=== PATIENT | female | born 1975 | race African-American/Black ===

== ENCOUNTER 2019-11-03 05:26 | Inpatient (IN) | payer MEDICAID ==
[2019-11-03] VITALS (7 sets, daily range): BP systolic 108–168; BP diastolic 56–98
[~2019-11-03] VITALS: Ht 170.2 cm; Wt 82.6 kg
[2019-11-03] MEDS ORDERED: HYDROmorphone 1mg/ml Carpuject IVP ONE (05:45)
[2019-11-03 05:55] LABS: APPEARANCE,URINE SLIGHTLY CLOUDY; BILIRUBIN, URINE NEGATIVE (NEGATIVE); COLOR,URINE PALE YELLOW; GLUCOSE, URINE (UA) NEGATIVE (NEGATIVE); KETONES,URINE NEGATIVE (NEGATIVE); LEUKOCYTE ESTERASE ,URINE 1+ (NEGATIVE); NITRITE,URINE NEGATIVE (NEGATIVE); PH,URINE 5 (4.5-8.0); PROTEIN,URINE 2+ (NEGATIVE); UROBILINOGEN,URINE NORMAL MG/DL (0.0-1.0)
--- NOTE | 2019-11-03 06:03 | Emergency Room Report ---
History of Present Illness General Chief Complaint: Vomiting Source: Patient (Basil Rojas MD) Present Illness HPI This a 44-year-old female with history of recurrent gastroenteritis. She says she gets this every few months if she eats certain food. Patient presents with 2 complaint abdominal pain with nausea and vomiting. Onset for last couple hours. Pain is severe. 10 out of 10. Pain is diffuse. No radiation. Nothing made it better. Nothing made it worse. Similar symptom in the past. Denies any fever chills but denies any diarrhea. He denies any urinary complaint. 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: No (Basil Rojas MD) Patient History Past Medical History: see triage record, old chart reviewed Past Surgical History: other Pertinent Family History: none Social History: Denies: smoking, alcohol use, drug use Last Menstrual Period: n/a Now: No Immunizations: other Reviewed Nursing Documentation: PMH: Agreed; PSxH: Agreed (Basil Rojas MD) Nursing Documentation-PMH Past Medical History: No History, Except For Hx Gastrointestinal Problems: Yes - gastritis (Basil Rojas MD) Review of Systems Eye: Denies: eye pain, blurred vision ENT: Denies: ear pain, nose congestion, throat swelling Respiratory: Denies: cough, shortness of breath Cardiovascular: Denies: chest pain, palpitations Gastrointestinal: Reports: abdominal pain, nausea, vomiting; Denies: diarrhea Musculoskeletal: Denies: back pain, joint pain Skin: Denies: rash Neurological: Denies: headache, numbness Endocrine: Denies: increased thirst, increased urine Hematologic/Lymphatic: Denies: easy bruising All Other Systems: negative except mentioned in HPI (Basil Rojas MD) Physical Exam Vital Signs Date Time Temp Pulse Resp B/P (MAP) Pulse Ox O2 Delivery O2 Flow Rate FiO2 11/03/19 05:34 97.0 64 18 144/98 (113) 98 Room Air Vitals with high blood pressure Sp02 EP Interpretation: reviewed, normal General Appearance: well appearing, no apparent distress, alert Head: normocephalic, atraumatic Eyes: bilateral eye PERRL, bilateral eye EOMI ENT: hearing grossly normal, normal pharynx Neck: full range of motion, supple, no meningismus Respiratory: chest non-tender, lungs clear, normal breath sounds Cardiovascular #1: regular rate, rhythm, no murmur Gastrointestinal: no mass, no organomegaly, no bruit, non-distended, tenderness - Diffuse, decreased bowel sounds Musculoskeletal: back normal, normal range of motion, gait/station normal Neurologic: alert, oriented x3 Psychiatric: mood/affect normal Skin: diaphoresis (Basil Rojas MD) Medical Decision Making Diagnostic Impression: Primary Impression: Abdominal pain Qualified Codes: R10.84 - Generalized abdominal pain Additional Impression: Cyclic vomiting syndrome ER Course Patient presents with symptom consistent with cyclic vomiting syndrome. Labs IV fluids and pain medication ordered. Will reassess. I will sign this patient out to Dr. Figueroa for final disposition. If patient felt better and tolerating p.o., can be discharged home. (Basil Rojas MD) ER Course Patient was endorsed to me by . See Dr. Rojas's note for full HPI. patient had reported longstanding history of cyclic vomiting and abdominal pain. She denies marijuana smoking. She states she did smoke marijuana on Sunday. Continued nausea and abdominal pain after receiving Dilaudid and Zofran in the emergency department. She started on dextrose containing fluids.Patient reports having multiple imaging studies in the past as well as previous colonoscopies and EGDs without any findings. She also reports having a prior history of fibroids which are reportedly the size of a golf ball. She does states she had some anemia in the past.Patient's laboratory testing is essentially unremarkable and there is no evidence of pancreatitis. White blood count is normal as is hemoglobin.EKG interpreted by me showed sinus bradycardia with a rate of [address] or T wave changes.Patient continues to have abdominal pain and nausea despite medications will likely require hospitalization for inpatient rehydration and management.Patient was also given Reglan as well as morphine.Patient was discussed with Dr. Gregory who agreed with admission Labs Test 11/03/19 05:55 White Blood Count 10.8 K/UL (4.8-10.8) Red Blood Count 4.36 M/UL (4.20-5.40) Hemoglobin 14.5 G/DL (12.0-16.0) Hematocrit 46.1 % (37.0-47.0) Mean Corpuscular Volume 106 FL (80-99) Mean Corpuscular Hemoglobin 33.1 PG (27.0-31.0) Mean Corpuscular Hemoglobin Concent 31.4 G/DL (32.0-36.0) Red Cell Distribution Width 11.9 % (11.6-14.8) Platelet Count 302 K/UL (150-450) Mean Platelet Volume 6.2 FL (6.5-10.1) Neutrophils (%) (Auto) 81.5 % (45.0-75.0) Lymphocytes (%) (Auto) 14.0 % (20.0-45.0) Monocytes (%) (Auto) 3.0 % (1.0-10.0) Eosinophils (%) (Auto) 0.8 % (0.0-3.0) Basophils (%) (Auto) 0.8 % (0.0-2.0) Urine Color Pale yellow Urine Appearance Slightly cloudy Urine pH 5 (4.5-8.0) Urine Specific [place] 1.025 (1.005-1.035) Urine Protein 2+ (NEGATIVE) Urine Glucose (UA) Negative (NEGATIVE) Urine Ketones Negative (NEGATIVE) Urine Blood 2+ (NEGATIVE) Urine Nitrite Negative (NEGATIVE) Urine Bilirubin Negative (NEGATIVE) Urine Urobilinogen Normal MG/DL (0.0-1.0) Urine Leukocyte Esterase 1+ (NEGATIVE) Urine RBC 2-4 /HPF (0 - 2) Urine WBC 2-4 /HPF (0 - 2) Urine Squamous Epithelial Cells Many /LPF (NONE/OCC) Urine Bacteria Few /HPF (NONE) Urine Mucus Moderate /LPF (NONE/OCC) Urine HCG, Qualitative Negative (NEGATIVE) Sodium Level 142 MMOL/L (136-145) Potassium Level 3.7 MMOL/L (3.5-5.1) Chloride Level 107 MMOL/L (98-107) Carbon Dioxide Level 22 MMOL/L (21-32) Anion Gap 13 mmol/L (5-15) Blood Urea Nitrogen 12 mg/dL (7-18) Creatinine 1.1 MG/DL (0.55-1.30) Estimat Glomerular Filtration Rate > 60 mL/min (>60) Glucose Level 163 MG/DL (74-106) Calcium Level 8.5 MG/DL (8.5-10.1) Total Bilirubin 0.2 MG/DL (0.2-1.0) Aspartate Amino Transf (AST/SGOT) 28 U/L (15-37) Alanine Aminotransferase (ALT/SGPT) 28 U/L (12-78) Alkaline Phosphatase 69 U/L (46-116) Total Protein 8.0 G/DL (6.4-8.2) Albumin 4.2 G/DL (3.4-5.0) Globulin 3.8 g/dL Albumin/Globulin Ratio 1.1 (1.0-2.7) Lipase 69 U/L (73-393) (Laureano Figueroa MD) Last Vital Signs Date Time Temp Pulse Resp B/P (MAP) Pulse Ox O2 Delivery O2 Flow Rate FiO2 11/03/19 05:35 64 18 Room Air 11/03/19 05:35 97.0 144/98 98 Status: improved (Basil Rojas MD) Status: unchanged (Laureano Figueroa MD) Disposition: ADMITTED INPATIENT Condition: Stable Referrals: KIZZY STERLING,REFERRING (PCP) Basil Rojas MD Nov 03, 2019 06:03 Laureano Figueroa MD Nov 03, 2019 07:17
[2019-11-03 06:06] LABS: BASOPHILS % (AUTO) 0.8 % (0.0-2.0); EOSINOPHILS % (AUTO) 0.8 % (0.0-3.0); HEMATOCRIT 46.1 % (37.0-47.0); HEMOGLOBIN 14.5 G/DL (12.0-16.0); MEAN CORPUSCULAR VOLUME 106 FL (80-99); NEUTROPHILS % (AUTO) 81.5 % (45.0-75.0); PLATELET COUNT 302 K/UL (150-450); RED BLOOD COUNT 4.36 M/UL (4.20-5.40); RED CELL DISTRIBUTION WIDTH 11.9 % (11.6-14.8); WHITE BLOOD COUNT 10.8 K/UL (4.8-10.8)
[2019-11-03 06:08] LABS: ANION GAP 13 mmol/L (5-15); BLOOD UREA NITROGEN 12 mg/dL (7-18); CALCIUM 8.5 MG/DL (8.5-10.1); CARBON DIOXIDE 22 MMOL/L (21-32); CHLORIDE 107 MMOL/L (98-107); CREATININE 1.1 MG/DL (0.55-1.30); POTASSIUM 3.7 MMOL/L (3.5-5.1); SODIUM 142 MMOL/L (136-145)
[2019-11-03 06:13] LABS: ALANINE AMINOTRANSFERASE 28 U/L (12-78); ALBUMIN 4.2 G/DL (3.4-5.0); ALBUMIN/GLOBULIN RATIO 1.1 (1.0-2.7); ALKALINE PHOSPHATASE 69 U/L (46-116); ASPARTATE AMINO TRANSFERASE 28 U/L (15-37); BILIRUBIN,TOTAL 0.2 MG/DL (0.2-1.0)
[2019-11-03] MEDS ORDERED: cefTRIAXone 1 GM in NS 55 ML IVPB ONE (07:00)
[2019-11-03] MEDS ORDERED: D5 1/2NS w/KCl 20mEq 1,000 ML IV SCH (07:15)
[2019-11-03] MEDS ORDERED: DiphenhydrAMINE 50mg/ml Inj IVP ONE (07:30)
[2019-11-03] MEDS ORDERED: Metoclopramide 10mg/2ml Inj IVP ONE (09:30)
[2019-11-03] MEDS ORDERED: Morphine Sulfate 4mg/ml Inj (IV USE ONLY) IVP ONE (09:30)
[2019-11-03] MEDS: Morphine Sulfate 2mg/ml Inj(IV/IM USE ONLY) IVP PRN ×3 (12:19→20:41)
[2019-11-03] MEDS ORDERED: NORETHINDRONE AC5 MG PO (13:36)
--- NOTE | 2019-11-03 13:47 | General Progress Note ---
Assessment/Plan Problem List: (1) Cyclic vomiting syndrome ICD Codes: R11.15 - Cyclical vomiting syndrome unrelated to migraine SNOMED: 60056775 (2) Abdominal pain ICD Codes: R10.9 - Unspecified abdominal pain SNOMED: 86042714 Qualifiers: Qualified Codes: R10.84 - Generalized abdominal pain Assessment/Plan: drug acreen abd us repeat labs clears and advance as tolerated Subjective ROS Limited/Unobtainable: Yes Allergies: Coded Allergies: No Known Allergies (Unverified , 11/03/19) Objective Last 24 Hour Vital Signs Date Time Temp Pulse Resp B/P (MAP) Pulse Ox O2 Delivery O2 Flow Rate FiO2 11/03/19 12:49 97.0 11/03/19 12:00 98.7 64 18 168/85 (112) 99 64 11/03/19 10:58 Room Air 11/03/19 10:56 Room Air 11/03/19 10:25 97.0 66 16 139/87 99 Room Air 80 11/03/19 10:15 97.0 80 16 139/87 99 Room Air 11/03/19 10:10 97.0 11/03/19 09:28 97.0 66 26 158/97 100 Room Air 11/03/19 07:48 97.0 65 33 146/71 99 Room Air 11/03/19 06:18 97.0 11/03/19 05:35 64 18 Room Air 11/03/19 05:35 97.0 63 18 144/98 98 Room Air 11/03/19 05:34 97.0 64 18 144/98 (113) 98 Room Air Intake and Output 11/02/19 11/03/19 19:00 07:00 Intake Total 1000 ml Balance 1000 ml Intake Oral 0 ml IV Total 1000 ml # Voids 1 Laboratory Tests 11/03/19 05:55: White Blood Count 10.8, Red Blood Count 4.36, Hemoglobin 14.5, Hematocrit 46.1, Mean Corpuscular Volume 106H, Mean Corpuscular Hemoglobin 33.1H, Mean Corpuscular Hemoglobin Concent 31.4L, Red Cell Distribution Width 11.9, Platelet Count 302, Mean Platelet Volume 6.2L, Neutrophils (%) (Auto) 81.5H, Lymphocytes (%) (Auto) 14.0L, Monocytes (%) (Auto) 3.0, Eosinophils (%) (Auto) 0.8, Basophils (%) (Auto) 0.8, Urine Color Pale yellow, Urine Appearance Slightly cloudy, Urine pH 5, Urine Specific [place] 1.025, Urine Protein 2+H, Urine Glucose (UA) Negative, Urine Ketones Negative, Urine Blood 2+H, Urine Nitrite Negative, Urine Bilirubin Negative, Urine Urobilinogen Normal, Urine Leukocyte Esterase 1+H, Urine RBC 2-4H, Urine WBC 2-4, Urine Squamous Epithelial Cells ManyH, Urine Bacteria Few, Urine Mucus ModerateH, Urine HCG, Qualitative Negative, Sodium Level 142, Potassium Level 3.7, Chloride Level 107 , Carbon Dioxide Level 22, Anion Gap 13, Blood Urea Nitrogen 12, Creatinine 1.1 , Estimat Glomerular Filtration Rate > 60, Glucose Level 163H, Calcium Level 8.5 , Total Bilirubin 0.2, Aspartate Amino Transf (AST/SGOT) 28, Alanine Aminotransferase (ALT/SGPT) 28, Alkaline Phosphatase 69, Total Protein 8.0, Albumin 4.2, Globulin 3.8, Albumin/Globulin Ratio 1.1, Lipase 69L Height (Feet): 5 Height (Inches): 7.00 Weight (Pounds): 182 General Appearance: alert EENT: normal ENT inspection Respiratory/Chest: lungs clear Abdomen: hypoactive bowel sounds, tender Extremities: non-tender Satnam Anderson MD Nov 03, 2019 13:47
[2019-11-03] MEDS: HYDROcodone/Acetamin 5/325 tab ORAL PRN (17:21)
[2019-11-03] MEDS: D5 1/2NS w/KCl 20mEq 1,000 ML IV SCH (18:00)
--- NOTE | 2019-11-03 18:15 | Diagnostic Imaging Report ---
Indication: Abdominal pain, nausea, vomiting Technique: Purdy-scale and duplex images of the upper abdomen were obtained Comparison: none Findings: Gallbladder is unremarkable, without stones, wall thickening, nor pericholecystic fluid. Sonographic Penaloza's sign is negative. Common bile duct measures 3 mm in diameter. No intrahepatic biliary ductal dilatation. Liver demonstrates normal echogenicity, no focal abnormality. Portal vein and hepatic veins are patent. Pancreas is unremarkable. Spleen is unremarkable. Left kidney measures 10.7 cm in length. Right kidney measures 10.5 cm length. Both kidneys demonstrate normal echogenicity. There is no hydronephrosis. Somewhat unusual thick walled left renal parapelvic cyst is noted . Non-aneurysmal abdominal aorta . Impression: Essentially unremarkable exam Somewhat unusual thick walled left renal parapelvic cyst incidentally noted
[2019-11-03] MEDS: Pantoprazole Inj IVP SCH (20:41)
--- NOTE | 2019-11-03 22:35 | History & Physical ---
Levy Villalpando MD Nov 03, 2019 22:35
[2019-11-04] VITALS: BP 130/65
[2019-11-04] MEDS: D5 1/2NS w/KCl 20mEq 1,000 ML IV SCH ×2 (01:04→08:52)
[2019-11-04] MEDS: HYDROcodone/Acetamin 5/325 tab ORAL PRN ×2 (01:04→10:33)
[2019-11-04 04:00] VITALS: BP 104/69
[2019-11-04] MEDS: Morphine Sulfate 2mg/ml Inj(IV/IM USE ONLY) IVP PRN (05:22)
[2019-11-04 06:11] LABS: ALANINE AMINOTRANSFERASE 33 U/L (12-78); ALBUMIN 3.6 G/DL (3.4-5.0); ALBUMIN/GLOBULIN RATIO 1.1 (1.0-2.7); ALKALINE PHOSPHATASE 55 U/L (46-116); ANION GAP 11 mmol/L (5-15); ASPARTATE AMINO TRANSFERASE 28 U/L (15-37); BILIRUBIN,TOTAL 0.3 MG/DL (0.2-1.0); BLOOD UREA NITROGEN 5 mg/dL (7-18); CALCIUM 8.2 MG/DL (8.5-10.1); CARBON DIOXIDE 24 MMOL/L (21-32); CHLORIDE 104 MMOL/L (98-107); CREATININE 1.1 MG/DL (0.55-1.30); PHOSPHORUS 2.1 MG/DL (2.5-4.9); SODIUM 139 MMOL/L (136-145)
[2019-11-04 06:13] LABS: BASOPHILS % (AUTO) 0.9 % (0.0-2.0); EOSINOPHILS % (AUTO) 1.2 % (0.0-3.0); HEMATOCRIT 41.6 % (37.0-47.0); HEMOGLOBIN 13.3 G/DL (12.0-16.0); LYMPHOCYTES % (AUTO) 28.4 % (20.0-45.0); MEAN CORPUSCULAR VOLUME 103 FL (80-99); MONOCYTES % (AUTO) 6.9 % (1.0-10.0); NEUTROPHILS % (AUTO) 62.6 % (45.0-75.0); PLATELET COUNT 273 K/UL (150-450); RED BLOOD COUNT 4.03 M/UL (4.20-5.40); WHITE BLOOD COUNT 11.4 K/UL (4.8-10.8)
[2019-11-04 08:00] VITALS: BP 125/67
--- NOTE | 2019-11-04 08:15 | Consultation ---
History of Present Illness General Chief Complaint: Vomiting Present Illness HPI This a 44-year-old female with history of recurrent gastroenteritis. She says she gets this every few months if she eats certain food. Patient presents with 2 complaint abdominal pain with nausea and vomiting. Onset for last couple hours. Pain is severe. 10 out of 10. Pain is diffuse. No radiation. Nothing made it better. Nothing made it worse. Similar symptom in the past. Denies any fever chills but denies any diarrhea. He denies any urinary complaint. Allergies: Coded Allergies: No Known Allergies (Unverified , 11/03/19) Medication History Scheduled Norethindrone Acetate (Norethindrone Acetate), 10 MG PO DAILY, (Reported) Patient History Healthcare decision maker Resuscitation status Advanced Directive on File Physical Exam Last 24 Hour Vital Signs Date Time Temp Pulse Resp B/P (MAP) Pulse Ox O2 Delivery O2 Flow Rate FiO2 11/04/19 04:00 98.9 71 18 104/69 (81) 98 75 11/04/19 00:00 98.7 75 18 130/65 (86) 99 75 11/03/19 21:00 Room Air 11/03/19 20:00 99.2 71 18 108/56 (73) 98 71 11/03/19 17:51 97.0 11/03/19 16:28 97.0 11/03/19 16:00 98.7 71 18 156/91 (112) 100 71 11/03/19 12:00 98.7 64 18 168/85 (112) 99 64 11/03/19 10:58 Room Air 11/03/19 10:56 Room Air 11/03/19 10:25 97.0 66 16 139/87 99 Room Air 80 11/03/19 10:15 97.0 80 16 139/87 99 Room Air 11/03/19 10:10 97.0 11/03/19 09:28 97.0 66 26 158/97 100 Room Air Intake and Output 11/03/19 11/04/19 19:00 07:00 Intake Total 425 ml 2128 ml Balance 425 ml 2128 ml Intake Oral 300 ml 628 ml IV Total 125 ml 1500 ml # Voids 5 # Bowel Movements 2 Laboratory Tests Test 11/03/19 16:30 11/04/19 04:55 Urine Opiates Screen Negative (NEGATIVE) Urine Barbiturates Screen Negative (NEGATIVE) Phencyclidine (PCP) Screen Negative (NEGATIVE) Urine Amphetamines Screen Negative (NEGATIVE) Urine Benzodiazepines Screen Negative (NEGATIVE) Urine Cocaine Screen Negative (NEGATIVE) Urine Marijuana (THC) Screen Positive (NEGATIVE) H White Blood Count 11.4 K/UL (4.8-10.8) H Red Blood Count 4.03 M/UL (4.20-5.40) L Hemoglobin 13.3 G/DL (12.0-16.0) Hematocrit 41.6 % (37.0-47.0) Mean Corpuscular Volume 103 FL (80-99) H Mean Corpuscular Hemoglobin 33.0 PG (27.0-31.0) H Mean Corpuscular Hemoglobin Concent 31.9 G/DL (32.0-36.0) L Red Cell Distribution Width 12.0 % (11.6-14.8) Platelet Count 273 K/UL (150-450) Mean Platelet Volume 6.8 FL (6.5-10.1) Neutrophils (%) (Auto) 62.6 % (45.0-75.0) Lymphocytes (%) (Auto) 28.4 % (20.0-45.0) Monocytes (%) (Auto) 6.9 % (1.0-10.0) Eosinophils (%) (Auto) 1.2 % (0.0-3.0) Basophils (%) (Auto) 0.9 % (0.0-2.0) Sodium Level 139 MMOL/L (136-145) Potassium Level 4.0 MMOL/L (3.5-5.1) Chloride Level 104 MMOL/L (98-107) Carbon Dioxide Level 24 MMOL/L (21-32) Anion Gap 11 mmol/L (5-15) Blood Urea Nitrogen 5 mg/dL (7-18) L Creatinine 1.1 MG/DL (0.55-1.30) Estimat Glomerular Filtration Rate > 60 mL/min (>60) Glucose Level 104 MG/DL (74-106) Hemoglobin A1c 6.2 % (4.3-6.0) H Calcium Level 8.2 MG/DL (8.5-10.1) L Phosphorus Level 2.1 MG/DL (2.5-4.9) L Total Bilirubin 0.3 MG/DL (0.2-1.0) Aspartate Amino Transf (AST/SGOT) 28 U/L (15-37) Alanine Aminotransferase (ALT/SGPT) 33 U/L (12-78) Alkaline Phosphatase 55 U/L (46-116) Total Protein 7.0 G/DL (6.4-8.2) Albumin 3.6 G/DL (3.4-5.0) Globulin 3.4 g/dL Albumin/Globulin Ratio 1.1 (1.0-2.7) Vitamin B12 Level 224 PG/ML (193-986) Thyroid Stimulating Hormone (TSH) 3.109 uiU/mL (0.358-3.740) Height (Feet): 5 Height (Inches): 7.00 Weight (Pounds): 182 Medications Current Medications Medications (Trade) Dose Ordered Sig/Samantha Route PRN Reason Start Time Stop Time Status Last Admin Dose Admin Acetaminophen (Tylenol) 650 mg Q6H PRN ORAL Mild Pain (Pain Scale 1-3) 11/03/19 12:15 12/03/19 12:14 Acetaminophen/ Hydrocodone Bitart ([place] 5/325) 1 tab Q4H PRN ORAL Moderate Pain (Pain Scale 4-6) 11/03/19 12:15 11/10/19 12:14 11/04/19 01:04 Dextrose/ Electrolytes 1,000 ml @ 125 mls/hr Q8H IV 11/03/19 18:00 12/03/19 17:59 11/04/19 01:04 Morphine Sulfate (Morphine Sulfate) 2 mg Q3H PRN IVP Severe Pain (Pain Scale 7-10) 11/03/19 12:15 11/10/19 12:14 11/04/19 05:22 Non-Formulary Medication (Non-Formulary Med) 1 ea DAILY ORAL 11/03/19 18:02 12/03/19 18:01 UNV Ondansetron HCl (Zofran) 4 mg Q4H PRN IVP Nausea & Vomiting 11/03/19 12:15 12/03/19 12:14 11/04/19 05:10 Pantoprazole (Protonix) 40 mg EVERY 12 HOURS IVP 11/03/19 21:00 12/03/19 20:59 11/03/19 20:41 Assessment/Plan Diagnosis [place] [facility]: #Cyclical vomiting #nausea #Electrolyte derangement #HTN - admit inpatient - GI eval - antiemetics - pain control - IVF Terri Gregory M.D. Nov 04, 2019 08:15
[2019-11-04] MEDS: Pantoprazole Inj IVP SCH (08:52)
--- NOTE | 2019-11-04 11:21 | General Progress Note ---
Assessment/Plan Problem List: (1) Cyclic vomiting syndrome ICD Codes: R11.15 - Cyclical vomiting syndrome unrelated to migraine SNOMED: 25775199 (2) Abdominal pain ICD Codes: R10.9 - Unspecified abdominal pain SNOMED: [id number] Qualifiers: Qualified Codes: R10.84 - Generalized abdominal pain Assessment/Plan: drug screen>> positive for THC cannabinoids hyperemesis syndrome repeat labs>> reviewed ivf ppi zofran advance to full liquid diet Subjective Allergies: Coded Allergies: No Known Allergies (Unverified , 11/03/19) Objective Last 24 Hour Vital Signs Date Time Temp Pulse Resp B/P (MAP) Pulse Ox O2 Delivery O2 Flow Rate FiO2 11/04/19 09:00 Room Air 11/04/19 08:00 98.5 68 19 125/67 (86) 98 68 11/04/19 04:00 98.9 71 18 104/69 (81) 98 75 11/04/19 00:00 98.7 75 18 130/65 (86) 99 75 11/03/19 21:00 Room Air 11/03/19 20:00 99.2 71 18 108/56 (73) 98 71 11/03/19 17:51 97.0 11/03/19 16:28 97.0 11/03/19 16:00 98.7 71 18 156/91 (112) 100 71 11/03/19 12:00 98.7 64 18 168/85 (112) 99 64 Intake and Output 11/03/19 11/04/19 19:00 07:00 Intake Total 425 ml 2128 ml Balance 425 ml 2128 ml Intake Oral 300 ml 628 ml IV Total 125 ml 1500 ml # Voids 5 # Bowel Movements 2 Laboratory Tests 11/03/19 16:30: Urine Opiates Screen Negative, Urine Barbiturates Screen Negative, Phencyclidine (PCP) Screen Negative, Urine Amphetamines Screen Negative, Urine Benzodiazepines Screen Negative, Urine Cocaine Screen Negative, Urine Marijuana (THC) Screen PositiveH 11/04/19 04:55: White Blood Count 11.4H, Red Blood Count 4.03L, Hemoglobin 13.3, Hematocrit 41.6 , Mean Corpuscular Volume 103H, Mean Corpuscular Hemoglobin 33.0H, Mean Corpuscular Hemoglobin Concent 31.9L, Red Cell Distribution Width 12.0, Platelet Count 273, Mean Platelet Volume 6.8, Neutrophils (%) (Auto) 62.6, Lymphocytes (%) (Auto) 28.4, Monocytes (%) (Auto) 6.9, Eosinophils (%) (Auto) 1.2, Basophils (%) (Auto) 0.9, Sodium Level 139, Potassium Level 4.0, Chloride Level 104, Carbon Dioxide Level 24, Anion Gap 11, Blood Urea Nitrogen 5L, Creatinine 1.1, Estimat Glomerular Filtration Rate > 60, Glucose Level 104, Hemoglobin A1c 6.2H, Calcium Level 8.2L, Phosphorus Level 2.1L, Total Bilirubin 0.3, Aspartate Amino Transf (AST/SGOT) 28, Alanine Aminotransferase (ALT/SGPT) 33, Alkaline Phosphatase 55, Total Protein 7.0, Albumin 3.6, Globulin 3.4, Albumin/Globulin Ratio 1.1, Vitamin B12 Level 224, Thyroid Stimulating Hormone ( TSH) 3.109 Height (Feet): 5 Height (Inches): 7.00 Weight (Pounds): 182 General Appearance: no apparent distress EENT: normal ENT inspection Neck: supple Cardiovascular: normal rate Respiratory/Chest: decreased breath sounds Abdomen: normal bowel sounds, non tender, soft Extremities: non-tender Satnam Anderson MD Nov 04, 2019 11:21
[2019-11-04 12:00] VITALS: BP 113/87
--- NOTE | 2019-11-04 15:40 | Internal Med Progress Note ---
Subjective Date of Service: Nov 04, 2019 Physician Name Levy Villalpando Attending Physician Terri Gregory M.D. Current Medications Medications (Trade) Dose Ordered Sig/Samantha Route PRN Reason Start Time Stop Time Status Last Admin Dose Admin Acetaminophen (Tylenol) 650 mg Q6H PRN ORAL Mild Pain (Pain Scale 1-3) 11/03/19 12:15 12/03/19 12:14 Acetaminophen/ Hydrocodone Bitart ([place] 5/325) 1 tab Q4H PRN ORAL Moderate Pain (Pain Scale 4-6) 11/03/19 12:15 11/10/19 12:14 11/04/19 10:33 Dextrose/ Electrolytes 1,000 ml @ 125 mls/hr Q8H IV 11/03/19 18:00 12/03/19 17:59 11/04/19 08:52 Morphine Sulfate (Morphine Sulfate) 2 mg Q3H PRN IVP Severe Pain (Pain Scale 7-10) 11/03/19 12:15 11/10/19 12:14 11/04/19 05:22 Ondansetron HCl (Zofran) 4 mg Q4H PRN IVP Nausea & Vomiting 11/03/19 12:15 12/03/19 12:14 11/04/19 09:00 Pantoprazole (Protonix) 40 mg EVERY 12 HOURS IVP 11/03/19 21:00 12/03/19 20:59 11/04/19 08:52 Patient Own Medication (Patient's Own Med) 1 ea DAILY ORAL 11/05/19 09:00 12/05/19 08:59 Patient Own Medication (Patient's Own Med) 2 ea DAILY ORAL 11/04/19 12:00 12/04/19 11:59 11/04/19 11:47 Allergies: Coded Allergies: No Known Allergies (Unverified , 11/03/19) Objective Last Vital Signs Date Time Temp Pulse Resp B/P (MAP) Pulse Ox O2 Delivery O2 Flow Rate FiO2 11/04/19 12:00 98.3 65 19 113/87 (96) 98 68 11/04/19 09:00 Room Air Laboratory Tests Test 11/03/19 16:30 11/04/19 04:55 Urine Opiates Screen Negative (NEGATIVE) Urine Barbiturates Screen Negative (NEGATIVE) Phencyclidine (PCP) Screen Negative (NEGATIVE) Urine Amphetamines Screen Negative (NEGATIVE) Urine Benzodiazepines Screen Negative (NEGATIVE) Urine Cocaine Screen Negative (NEGATIVE) Urine Marijuana (THC) Screen Positive (NEGATIVE) H White Blood Count 11.4 K/UL (4.8-10.8) H Red Blood Count 4.03 M/UL (4.20-5.40) L Hemoglobin 13.3 G/DL (12.0-16.0) Hematocrit 41.6 % (37.0-47.0) Mean Corpuscular Volume 103 FL (80-99) H Mean Corpuscular Hemoglobin 33.0 PG (27.0-31.0) H Mean Corpuscular Hemoglobin Concent 31.9 G/DL (32.0-36.0) L Red Cell Distribution Width 12.0 % (11.6-14.8) Platelet Count 273 K/UL (150-450) Mean Platelet Volume 6.8 FL (6.5-10.1) Neutrophils (%) (Auto) 62.6 % (45.0-75.0) Lymphocytes (%) (Auto) 28.4 % (20.0-45.0) Monocytes (%) (Auto) 6.9 % (1.0-10.0) Eosinophils (%) (Auto) 1.2 % (0.0-3.0) Basophils (%) (Auto) 0.9 % (0.0-2.0) Sodium Level 139 MMOL/L (136-145) Potassium Level 4.0 MMOL/L (3.5-5.1) Chloride Level 104 MMOL/L (98-107) Carbon Dioxide Level 24 MMOL/L (21-32) Anion Gap 11 mmol/L (5-15) Blood Urea Nitrogen 5 mg/dL (7-18) L Creatinine 1.1 MG/DL (0.55-1.30) Estimat Glomerular Filtration Rate > 60 mL/min (>60) Glucose Level 104 MG/DL (74-106) Hemoglobin A1c 6.2 % (4.3-6.0) H Calcium Level 8.2 MG/DL (8.5-10.1) L Phosphorus Level 2.1 MG/DL (2.5-4.9) L Total Bilirubin 0.3 MG/DL (0.2-1.0) Aspartate Amino Transf (AST/SGOT) 28 U/L (15-37) Alanine Aminotransferase (ALT/SGPT) 33 U/L (12-78) Alkaline Phosphatase 55 U/L (46-116) Total Protein 7.0 G/DL (6.4-8.2) Albumin 3.6 G/DL (3.4-5.0) Globulin 3.4 g/dL Albumin/Globulin Ratio 1.1 (1.0-2.7) Vitamin B12 Level 224 PG/ML (193-986) Thyroid Stimulating Hormone (TSH) 3.109 uiU/mL (0.358-3.740) Intake and Output 11/03/19 11/04/19 19:00 07:00 Intake Total 425 ml 2128 ml Balance 425 ml 2128 ml Intake Oral 300 ml 628 ml IV Total 125 ml 1500 ml # Voids 5 # Bowel Movements 2 Levy Villalpando MD Nov 04, 2019 15:40
[2019-11-05] MEDS ORDERED: PRENATAL ORAL SCH (09:00)
--- NOTE | 2019-11-06 17:42 | Discharge Summary ---
Discharge Summary Discharge Summary _ DATE OF ADMISSION: 11/03/2019 DATE OF DISCHARGE: 11/04/2019 DISCHARGED BY: Dr Villalpando REASON FOR ADMISSION: 44 years old female with history of recurrent gastroenteritis , presented with complaint of abdominal pain with associated nausea and nonbloody vomiting for the last few hours. Pain reported to be severe, 10 out of 10, diffuse, without radiation. Patient reported recurrent symptoms every few months , after she eats certain foods. She denied fever and chills. She denied diarrhea. She denied any urinary complaints. Upon evaluation patient vital signs were stable. Laboratory work-up revealed no leukocytosis , stable hemoglobin , hematocrit, and platelet count. Urinalysis revealed +2 protein , +1 leukocyte esterase, few bacteria , no pyuria. Urine test was negative. Stable electrolytes and renal parameters. Glucose 163. Stable LFT and lipase. Abdominal ultrasound was essentially unremarkable. In the emergency department patient received 1 L of IV fluids , analgesic, antiemetic , 1 dose of antibiotic, IV Pepcid and admitted for further management. CONSULTANTS: GI specialist Dr. Anderson indoor landscaper/gardener Dr. Gregory [facility] COURSE: Patient admitted to medical surgical floor. Patient was slowly started on clear liquid diet. Pain management was addressed as needed. GI specialist seen and evaluated patient. Urine toxicology screen was positive for THC. Patient likely had a cannabinoid hyperemesis syndrome. Patient was continued on IV fluids , PPI and Zofran. Diet was slowly advanced to full liquid. Patient was able to tolerate diet. Renal parameters delete and electrolytes were closely monitored, remained stable. Hemoglobin A1c was checked due to elevated glucose 163 , and was 6.2. Patient had a prediabetes. Patient was counseled on no concentrated sweets diet. Patient to follow-up with her primary care provider for blood sugar monitoring. Patient clinically stabilized and was ready for discharge home. Patient was counseled to limit the amount of marijuana. Due to rapid and unexpected improvement in patient condition, patient was discharged in 1 day. FINAL DIAGNOSES: Cyclic vomiting syndrome Cannabinoid hyperemesis syndrome Abdominal pain DISCHARGE MEDICATIONS: See Medication Reconciliation list. DISCHARGE INSTRUCTIONS: Patient was discharged home. Follow-up with a primary care provider in 1 week. I have been assigned to dictate discharge summary for this account. I was not involved in the patient's management. Mckenzie Ruiz NP Nov 06, 2019 17:42
== END 2019-11-04 15:20 | disposition home or self-care (01) | DRG 249 ==
LOC: EMR 05:47 → 3E 07:47 → EDBEDREQ 08:10 → 3E 10:33
DX: R11.15 Cyclical vomiting syndrome unrelated to migraine (principal); R10.9 Unspecified abdominal pain; F12.90 Cannabis use, unspecified, uncomplicated; I10 Essential (primary) hypertension; E88.9 Metabolic disorder, unspecified
CPT/HCPCS: 36415; 76700; 80053; 80307; 81003; 81025; 82607; 83036; 83690; 84100; 84443; 85025; 93005; 96361; 96365; 96375; 99285; J2405; J2765; J7030